=== PATIENT | female | born 1960 | race Two or more races ===

== ENCOUNTER → 2017-08-05 10:09 | Outpatient (CLI) | payer OTHER ==
[~2017-08-05 10:09] MED LIST: ALLEGRA ALLERG180 MG PO; CALTRATE 600600 MG PO; CALTRATE-600/VI1 TA1 PO; COD LIVER OIL1 EACH PO; DEXILANT60 MG PO; FLONASE16 GM NS; MAXITROL EYE O3.5 GM OP; OMEGA 3 FISH OI1 CAP PO; TUSNEL CAPLET1 EACH PO; VITAMIN D-32000 UNIT PO; ZITHROMAX TRI-500 MG PO; ZITHROMAX200 MG PO; ZITHROMAX500 MG PO; [UNRECOGNIZED DRUG - OTHER]; [UNRECOGNIZED DRUG - OTHER] TP
== END | disposition home or self-care (01) ==
LOC: LAB 10:09
DX: R42 Dizziness and giddiness (principal); E78.5 Hyperlipidemia, unspecified; E73.9 Lactose intolerance, unspecified

== ENCOUNTER → 2017-08-26 | Outpatient (CLI) | payer OTHER | END | disposition home or self-care (01) | LOC: PPHC 14:00 | DX: H10.32 Unspecified acute conjunctivitis, left eye (principal) ==

== ENCOUNTER 2017-12-09 09:07 | Outpatient (CLI) | payer OTHER | END 2017-12-09 09:18 | disposition home or self-care (01) | LOC: LAB 09:07 | DX: I11.9 Hypertensive heart disease without heart failure (principal); E11.9 Type 2 diabetes mellitus without complications; E78.2 Mixed hyperlipidemia; E03.8 Other specified hypothyroidism; N39.0 Urinary tract infection, site not specified; E55.9 Vitamin D deficiency, unspecified; E56.8 Deficiency of other vitamins ==

== ENCOUNTER 2018-02-21 17:08 | Outpatient (CLI) | payer OTHER | END 2018-02-21 17:30 | disposition home or self-care (01) | LOC: MAMO-SONO 17:08 | DX: Z12.31 Encounter for screening mammogram for malignant neoplasm of breast (principal); N64.89 Other specified disorders of breast; R10.2 Pelvic and perineal pain; D25.9 Leiomyoma of uterus, unspecified ==

== ENCOUNTER → 2018-07-04 09:10 | Outpatient (CLI) | payer OTHER | END | disposition home or self-care (01) | LOC: LAB 09:10 | DX: K30 Functional dyspepsia (principal); R10.13 Epigastric pain; K21.9 Gastro-esophageal reflux disease without esophagitis; Z00.00 Encounter for general adult medical examination without abnormal findings ==

== ENCOUNTER 2018-07-12 06:22 | Outpatient (CLI) | payer OTHER | END 2018-07-12 08:23 | disposition home or self-care (01) | LOC: LAB 06:22 | DX: K30 Functional dyspepsia (principal); R10.13 Epigastric pain; K21.9 Gastro-esophageal reflux disease without esophagitis; Z00.00 Encounter for general adult medical examination without abnormal findings ==

== ENCOUNTER 2018-08-04 08:03 | Outpatient (CLI) | payer OTHER | END 2018-08-04 08:09 | disposition home or self-care (01) | LOC: SONOGRAMA 08:03 | DX: R10.13 Epigastric pain (principal); K44.9 Diaphragmatic hernia without obstruction or gangrene; R74.0 Nonspecific elevation of levels of transaminase and lactic acid dehydrogenase [LDH] ==

== ENCOUNTER 2018-11-02 08:24 | Outpatient (CLI) | payer OTHER | END 2018-11-02 08:25 | disposition home or self-care (01) | LOC: LAB 08:24 | DX: Z00.00 Encounter for general adult medical examination without abnormal findings (principal); R42 Dizziness and giddiness; E55.9 Vitamin D deficiency, unspecified; E78.4 Other hyperlipidemia; G93.3 Postviral and related fatigue syndromes; R53.1 Weakness; R09.81 Nasal congestion ==

== ENCOUNTER → 2019-01-24 14:08 | Outpatient (CLI) | payer OTHER | END | disposition home or self-care (01) | LOC: LAB 14:08 | DX: J11.1 Influenza due to unidentified influenza virus with other respiratory manifestations (principal) ==

== ENCOUNTER 2019-02-07 13:33 | Outpatient (CLI) | payer OTHER | END 2019-02-07 13:42 | disposition home or self-care (01) | LOC: RAD 13:33 | DX: R05 Cough (principal) ==

== ENCOUNTER 2019-03-16 10:52 | Outpatient (CLI) | payer OTHER | END 2019-03-16 11:00 | disposition home or self-care (01) | LOC: MAMO-SONO 10:52 | DX: Z12.31 Encounter for screening mammogram for malignant neoplasm of breast (principal); Z87.898 Personal history of other specified conditions; Z12.39 Encounter for other screening for malignant neoplasm of breast ==

== ENCOUNTER 2019-05-03 07:00 | Outpatient (CLI) | payer OTHER | END 2019-05-03 15:00 | disposition home or self-care (01) | LOC: LAB 07:00 | DX: E11.9 Type 2 diabetes mellitus without complications (principal); E78.2 Mixed hyperlipidemia; I11.9 Hypertensive heart disease without heart failure; K44.9 Diaphragmatic hernia without obstruction or gangrene; K21.9 Gastro-esophageal reflux disease without esophagitis; R74.0 Nonspecific elevation of levels of transaminase and lactic acid dehydrogenase [LDH]; Z12.11 Encounter for screening for malignant neoplasm of colon; D64.89 Other specified anemias; E03.8 Other specified hypothyroidism; N95.1 Menopausal and female climacteric states; C51.8 Malignant neoplasm of overlapping sites of vulva; N30.00 Acute cystitis without hematuria; A64 Unspecified sexually transmitted disease; R97.8 Other abnormal tumor markers; R79.89 Other specified abnormal findings of blood chemistry; E55.9 Vitamin D deficiency, unspecified ==

== ENCOUNTER 2019-05-30 14:41 | Outpatient (CLI) | payer OTHER | END 2019-05-30 15:05 | disposition home or self-care (01) | LOC: NUCLEAR 14:41 | DX: M81.0 Age-related osteoporosis without current pathological fracture (principal) ==

== ENCOUNTER 2019-07-01 08:59 | Emergency (ER) | payer OTHER ==
[~2019-07-01] VITALS: Ht 160 cm; Wt 63.5 kg
[2019-07-01] MEDS ORDERED: VASOTEC5 MG (09:07)
[2019-07-01] MEDS ORDERED: ATORVASTATIN CA10 MG (09:08)
[2019-07-01] MEDS ORDERED: KETO10TA2 PO (10:27)
== END 2019-07-01 10:35 ==
LOC: ER 08:59
DX: S20.212A Contusion of left front wall of thorax, initial encounter (principal); M79.632 Pain in left forearm; W18.09XA Striking against other object with subsequent fall, initial encounter; Y93.89 Activity, other specified; Y92.098 Other place in other non-institutional residence as the place of occurrence of the external cause; Y99.8 Other external cause status

== ENCOUNTER 2020-01-11 08:18 | Outpatient (CLI) | payer OTHER ==
[~2020-01-11 08:18] MED LIST changes: +ATORVASTATIN CA10 MG; +KETO10TA2 PO; +VASOTEC5 MG
== END 2020-01-11 15:47 | disposition home or self-care (01) ==
LOC: LAB 08:18
DX: R42 Dizziness and giddiness (principal); R53.83 Other fatigue

== ENCOUNTER 2020-01-11 17:52 | Outpatient (CLI) | payer OTHER | END 2020-01-11 17:55 | disposition home or self-care (01) | LOC: PPH VACUNA 17:52 | DX: Z23 Encounter for immunization (principal) ==

== ENCOUNTER → 2020-02-15 09:37 | Outpatient (CLI) | payer OTHER | END | disposition home or self-care (01) | LOC: LAB 09:37 | PROVIDERS: ATTEND Internal Medicine | DX: Z02.79 Encounter for issue of other medical certificate (principal) ==

== ENCOUNTER → 2020-02-29 09:52 | Outpatient (CLI) | payer OTHER | END | disposition home or self-care (01) | LOC: LAB 09:52 | PROVIDERS: ATTEND Internal Medicine | DX: E87.8 Other disorders of electrolyte and fluid balance, not elsewhere classified (principal); B34.8 Other viral infections of unspecified site; I10 Essential (primary) hypertension ==

== ENCOUNTER 2020-03-05 10:35 | Outpatient (CLI) | payer OTHER | END 2020-03-05 16:24 | disposition home or self-care (01) | LOC: LAB 10:35 | DX: R05 Cough (principal); R50.9 Fever, unspecified; Z03.818 Encounter for observation for suspected exposure to other biological agents ruled out; R06.02 Shortness of breath ==

== ENCOUNTER 2021-05-23 04:37 | Emergency (ER) | payer OTHER ==
[~2021-05-23] VITALS: Ht 160 cm; Wt 63.5 kg
[2021-05-23] MEDS ORDERED: METFORMIN HCL500 MG PO (04:52)
[2021-05-23] MEDS ORDERED: MICARDIS20 MG PO (04:52)
== END 2021-05-23 10:43 | disposition home or self-care (01) ==
LOC: ER 04:37
DX: N30.81 Other cystitis with hematuria (principal)